=== PATIENT | male | born 1935 | race Caucasian/White ===

== ENCOUNTER → 2016-08-03 | Outpatient (CLI) | payer OTHER ==
[~2016-08-03] MED LIST: ATOR80TA75 PO; B12 COMPLEX PO; CARV3.122 PO; CHOL10002 PO; DOCUSATE PO; FISH OIL PO; HYDR-3241 PO; LACT1CAP35 PO; MULT-516 PO; PANT40TA5 PO; SERT100T5 PO; STOOL SOFTENER PO; [UNRECOGNIZED DRUG - OTHER] PO; [UNRECOGNIZED DRUG - OTHER] PO
[2016-08-03 14:21] LABS: ASPARTATE AMINO TRANSFERASE 18 U/L (15-37); BLOOD UREA NITROGEN 13 mg/dL (7-18)
== END | disposition home or self-care (01) ==
LOC: STAR 12:42
PROVIDERS: ATTEND Orthopaedic Surgery
DX: Z01.818 Encounter for other preprocedural examination (principal); M17.12 Unilateral primary osteoarthritis, left knee; R79.1 Abnormal coagulation profile; Z96.652 Presence of left artificial knee joint
CPT/HCPCS: 36415; 80053; 81003; 83036; 85025; 85610; 85730; 87081; 93005

== ENCOUNTER 2016-08-13 10:44 | Inpatient (IN) | payer OTHER ==
[~2016-08-13] VITALS: Ht 170.2 cm; Wt 42.3 kg
[~2016-08-13 10:44] MED LIST changes: +EPINEPHRINE 1 MG/ML, 1ML ONE; +KETOROLAC 60 MG/2 ML ONE; +ROPIvacaine/PF 0.2%, 20 ML ONE; +SODIUM CHLORIDE 0.9% 50 ML ONE; +TRANEXAMIC ACID 100 MG/ML, 10ML ONE
[2016-08-13] MEDS ORDERED: VANCOMYCIN PER PHARMACY MC STA (11:07)
[2016-08-13] MEDS ORDERED: OxyconTIN ER 10 MG TAB.ER PO ONE (11:07)
[2016-08-13] MEDS ORDERED: PLEASE ENTER ALLERGIES MC SCH ×2 (11:30)
[2016-08-13] MEDS ORDERED: VANCOMYCIN 2,000 MG in SODIUM CHLORIDE 0.9% 500 ML IV ONE (11:30)
[2016-08-13] MEDS ORDERED: PHARMACOKINETIC CONSULTATION MC ONE (11:30)
[2016-08-13] MEDS ORDERED: LACTATED RINGERS 1,000 ML IV SCH (11:43)
[2016-08-13 12:08] VITALS: BP 120/67
[2016-08-13] MEDS ORDERED: FENTANYL PF 250 MCG/5ML ONE (13:41)
[2016-08-13] MEDS ORDERED: MIDAZOLAM 1 MG/ML, 2ML ONE ×2 (13:42→14:29)
[2016-08-13] MEDS ORDERED: TRANEXAMIC ACID 100 MG/ML, 10ML ONE ×2 (14:08)
[2016-08-13] MEDS ORDERED: BUPIVACAINE/PF-EPI 0.25% 1:200K ONE (14:29)
[2016-08-13] MEDS ORDERED: CEFAZOLIN 1,000 MG ONE (14:59)
[2016-08-13] MEDS ORDERED: DEXAMETHASONE 4 MG/ML, 1ML ONE (14:59)
[2016-08-13] MEDS ORDERED: PROPOFOL 10 MG/ML, 20ML ONE (14:59)
[2016-08-13] MEDS ORDERED: ONDANSETRON 2MG/ML, 2ML ONE (14:59)
[2016-08-13] MEDS ORDERED: SUCCINYLCHOLINE 20 MG/ML, 10ML ONE (14:59)
[2016-08-13] MEDS ORDERED: METOCLOPRAMIDE 5 MG/ML, 2ML ONE (14:59)
[2016-08-13] MEDS ORDERED: EPHEDRINE 50 MG/ML, 1ML ONE (14:59)
[2016-08-13] MEDS ORDERED: hydrALAzine 20 MG/ML, 1ML IV PRN (15:30)
[2016-08-13] MEDS ORDERED: LABETALOL 5MG/ML, 20ML IV PRN (15:30)
[2016-08-13] MEDS ORDERED: HYDROmorphone 1 MG/ML, 1ML IV PRN ×2 (15:30→17:30)
[2016-08-13] MEDS ORDERED: OXYcodone 5 MG/5 ML ORAL.SOL UDC PO PRN (15:30)
[2016-08-13] MEDS ORDERED: MEPERIDINE/PF 25MG/0.5ML IVPush PRN (15:30)
[2016-08-13] MEDS ORDERED: ACETAMINOPHEN 325 MG TABLET PO PRN (15:30)
[2016-08-13] MEDS ORDERED: PROMETHAZINE 25 MG/ML, 1ML IV PRN (15:30)
[2016-08-13] MEDS ORDERED: ONDANSETRON 2MG/ML, 2ML IVPush PRN (15:30)
[2016-08-13] MEDS ORDERED: SCOPOLAMINE PATCH, 1.5MG PATCH.TD72 TD SCH (17:30)
[2016-08-13] MEDS ORDERED: ALUMINUM/MAG/SIMETHICONE 30 ML UDC PO PRN (17:30)
[2016-08-13] MEDS ORDERED: ACETAMINOPHEN 650 MG/20.3 ML UDC PO PRN (17:30)
[2016-08-13] MEDS ORDERED: SENNA/DOCUSATE TABLET PO PRN (17:30)
[2016-08-13] MEDS ORDERED: ONDANSETRON 2MG/ML, 2ML IV PRN (17:30)
[2016-08-13] MEDS ORDERED: ONDANSETRON 4 MG TABLET PO PRN (17:30)
[2016-08-13] MEDS ORDERED: MAGNESIUM HYDROXIDE 8%, 30ML UDC PO PRN (17:30)
[2016-08-13] MEDS ORDERED: DIPHENHYDRAMINE 25 MG CAPSULE PO PRN (17:30)
[2016-08-13] MEDS ORDERED: BISACODYL 10 MG SUPP PR PRN (17:30)
[2016-08-13] MEDS ORDERED: CEFAZOLIN PMX 2GM/50ML 50 ML IVPB SCH (17:30)
[2016-08-13] MEDS ORDERED: FENTANYL PF 100 MCG/2ML ONE (17:39)
[2016-08-13] MEDS ORDERED: OXYcodone 5 MG/5 ML ORAL.SOL UDC ONE (17:40)
[2016-08-13] MEDS: FENTANYL PF 100 MCG/2ML IV PRN ×2 (17:45→18:03)
[2016-08-13] MEDS ORDERED: TRANEXAMIC ACID 1,000 MG in SODIUM CHLORIDE 0.9% 100 ML IVPB ONE (18:00)
[2016-08-13 18:37] LABS: CELLS COUNTED 395; DILUTION 1; WBC SQUARES COUNTED 10
[2016-08-13 20:05] VITALS: BP 105/44
[2016-08-13] MEDS: DOCUSATE 100 MG CAPSULE PO SCH (21:00)
[2016-08-13] MEDS: DOCUSATE 50 MG/5 ML ORAL SOL PO SCH (22:18)
[2016-08-13] MEDS: QUETIAPINE 200 MG TABLET PO SCH (22:18)
[2016-08-13] MEDS: CEFAZOLIN PMX 2GM/50ML 50 ML IVPB SCH (22:18)
[2016-08-13] MEDS: SULFAMETH./TRIMETHOPRIM DS 800MG/160MG TABLET PO SCH (22:18)
[2016-08-13] MEDS: OXYcodone IR 5MG TABLET PO PRN (22:21)
[2016-08-13 23:41] VITALS: BP 101/56
[2016-08-14] MEDS ORDERED: ACETAMINOPHEN 325 MG TABLET ONE ×2 (00:09→00:14)
[2016-08-14] MEDS ORDERED: ACETAMINOPHEN 325 MG TABLET PO PRN (01:30)
[2016-08-14 04:17] VITALS: BP 100/56
[2016-08-14] MEDS: CEFAZOLIN PMX 2GM/50ML 50 ML IVPB SCH (05:56)
[2016-08-14] MEDS: CARVEDILOL 3.125 MG TABLET PO SCH ×2 (05:56→18:00)
[2016-08-14] MEDS: OXYcodone IR 5MG TABLET PO PRN ×4 (05:56→21:12)
[2016-08-14] MEDS: D5%-0.45% NACL 1,000 ML IV SCH ×4 (05:57→21:13)
[2016-08-14] MEDS ORDERED: DEXAMETHASONE 4 MG/ML, 1ML IVPush SCH (06:00)
[2016-08-14] MEDS: PANTOPROZOLE 40MG TABLET PO SCH (07:25)
[2016-08-14 08:31] VITALS: BP 93/55
[2016-08-14] MEDS: TAMSULOSIN 0.4 MG CAP.ER.24H PO SCH (09:00)
[2016-08-14] MEDS: DOCUSATE 50 MG/5 ML ORAL SOL PO SCH ×2 (09:00→21:00)
[2016-08-14] MEDS: DOCUSATE 100 MG CAPSULE PO SCH ×2 (09:31→21:13)
[2016-08-14] MEDS: SULFAMETH./TRIMETHOPRIM DS 800MG/160MG TABLET PO SCH ×2 (09:32→21:12)
[2016-08-14] MEDS: ATORVASTATIN 80 MG TABLET PO SCH (09:33)
[2016-08-14] MEDS: MULTIVITAMINS/MINERALS TABLET PO SCH (09:33)
[2016-08-14] MEDS: MULTIVITAMIN 1 TABLET PO SCH (09:33)
[2016-08-14] MEDS: CHOLECALCIFEROL 1,000 UNIT TABLET PO SCH (09:34)
[2016-08-14] MEDS: SERTRALINE 100MG TABLET PO SCH (09:34)
[2016-08-14] MEDS: RIVAROXABAN 10 MG TABLET PO SCH (09:34)
[2016-08-14] MEDS: CYANOCOBALAMIN 1,000 MCG TABLET PO SCH (09:40)
[2016-08-14 12:48] VITALS: BP 130/69
[2016-08-14 18:33] VITALS: BP 99/54
[2016-08-14] MEDS: QUETIAPINE 200 MG TABLET PO SCH (21:12)
[2016-08-15] MEDS: OXYcodone IR 5MG TABLET PO PRN ×3 (00:46→10:31)
[2016-08-15 02:28] VITALS: BP 87/40
[2016-08-15 02:34] VITALS: BP 93/56
[2016-08-15 05:41] VITALS: BP 98/56
[2016-08-15] MEDS: CARVEDILOL 3.125 MG TABLET PO SCH (05:42)
[2016-08-15] MEDS: PANTOPROZOLE 40MG TABLET PO SCH (07:35)
[2016-08-15 09:00] VITALS: BP 101/52
[2016-08-15] MEDS: D5%-0.45% NACL 1,000 ML IV SCH (09:00)
[2016-08-15] MEDS: TAMSULOSIN 0.4 MG CAP.ER.24H PO SCH (09:00)
[2016-08-15] MEDS: DOCUSATE 50 MG/5 ML ORAL SOL PO SCH (09:00)
[2016-08-15] MEDS: MULTIVITAMIN 1 TABLET PO SCH (10:30)
[2016-08-15] MEDS: CYANOCOBALAMIN 1,000 MCG TABLET PO SCH (10:30)
[2016-08-15] MEDS: DOCUSATE 100 MG CAPSULE PO SCH (10:30)
[2016-08-15] MEDS: SULFAMETH./TRIMETHOPRIM DS 800MG/160MG TABLET PO SCH (10:30)
[2016-08-15] MEDS: MULTIVITAMINS/MINERALS TABLET PO SCH (10:31)
[2016-08-15] MEDS: SERTRALINE 100MG TABLET PO SCH (10:31)
[2016-08-15] MEDS: ATORVASTATIN 80 MG TABLET PO SCH (10:31)
[2016-08-15] MEDS: RIVAROXABAN 10 MG TABLET PO SCH (10:31)
[2016-08-15] MEDS: CHOLECALCIFEROL 1,000 UNIT TABLET PO SCH (10:31)
== END 2016-08-15 11:55 | disposition home or self-care (01) | DRG 489 ==
LOC: ORIP 10:44 → 4NOR 18:39
PROVIDERS: ADMIT Orthopaedic Surgery; ATTEND Orthopaedic Surgery
PROC: 0SBD0ZZ Excision of Left Knee Joint, Open Approach (ICD-10-PCS; 2016-08-13)
PROC: 0LR Tendons, Replacement (ICD-10-PCS; principal; 2016-08-13 12:30)
DX: S76.112A Strain of left quadriceps muscle, fascia and tendon, initial encounter (principal); Z96.652 Presence of left artificial knee joint; I10 Essential (primary) hypertension; W19.XXXA Unspecified fall, initial encounter; Y93.89 Activity, other specified; Y92.89 Other specified places as the place of occurrence of the external cause
CPT/HCPCS: 87070; 87075; 87102; 87205; 89051; C1713; J0171; J0690; J1100; J1885; J2250; J2405; J2704; J2795; J3010; J3370; C1762; J0330; J2765; J7040; J7120